=== PATIENT | male | born 1985 | race Caucasian/White ===

== ENCOUNTER 2022-05-01 23:05 | Emergency (ER) | payer OTHER ==
[~2022-05-01] VITALS: Ht 175.3 cm; Wt 108.1 kg
[2022-05-01] MEDS ORDERED: TETRACAINE HCL 0.5% OPTH(EYE) SOLN 4ML LEFTEYE ONE (23:45)
[2022-05-01] MEDS ORDERED: FLUORESCEIN SOD OPTH TEST STRIP LEFTEYE ONE (23:45)
[2022-05-02] MEDS ORDERED: ERYTHROMY OPTH OINT 5mg/gm 1gm or 3.5gm tube OP ONE (02:45)
[2022-05-02] MEDS ORDERED: ERY05OO OP (02:48)
[2022-05-02] MEDS ORDERED: ACETAMINOPHEN 325 MG TAB PO ONE (03:00)
[2022-05-02 03:10] VITALS: BP 150/75
== END 2022-05-02 03:15 | disposition home or self-care (01) ==
LOC: ER 23:05
DX: H57.12 Ocular pain, left eye (principal); I10 Essential (primary) hypertension; Z88.5 Allergy status to narcotic agent